=== PATIENT | male | born 1960 ===

== ENCOUNTER → 2016-11-14 | Outpatient (CLI) | payer MEDICARE, MEDICAID ==
--- NOTE | 2016-12-04 13:54 | SS ---
ADMIT: 11/14/2016 RM/LOC: [facility] MR#: [id number] [id number] BARRAGANERWIN Chatterjee [address] [place] [address] Sleep Study SEX: M AGE: 56 : 1960 STUDY DATE: 11/14/2016 CLINICAL HISTORY: This is a 56-year-old male, body mass of 28.7, 68 inches tall, 190 pounds with symptoms of excessive daytime somnolence, undergoing evaluation for obstructive sleep apnea. TECHNICAL DESCRIPTION: Split night polysomnogram performed on night of 11/14/2016, attended by a trained diagnostic radiologic technologist. DIAGNOSTIC POLYSOMNOGRAM FINDINGS: SLEEP: Total time in bed is 161.5 minutes, total sleep time 123 minutes, sleep efficiency 76.2%. BREATHING: Moderate to severe obstructive sleep apnea with apnea-hypopnea index 22.4, primary positional. OXYGEN SATURATION: Average oxygen saturation is 94%. Lowest oxygen saturation 90%. CARDIAC: Average heart rate is 67 beats per minute. BODY POSITION: During the diagnostic portion, the patient slept in the supine lateral position. CPAP TITRATION FINDINGS: TITRATION DESCRIPTION: The patient was titrated from 5 cm of CPAP to 11 cm of CPAP. A ResMed AirFit F20 mask was used as interface. BREATHING: Excellent resolution of obstructive sleep apnea was seen. CPAP 11 cm. The patient was seen in REM sleep in lateral position. Complete resolution of obstructive events. REM supine sleep was not seen at this ADMIT: 11/14/2016 RM/LOC: [facility] MR#: [id number] [address] BARRAGANERWIN ESCOBEDO [address] [place] [id number] Sleep Study SEX: M AGE: 56 : 1960 ending pressure. IMPRESSION/PLAN: Moderate to severe positional obstructive sleep apnea with apnea-hypopnea index of 22.4. Recommend using CPAP 11 cm mask as mentioned above. Recommend losing weight, avoiding sedatives and alcohol. Refrain from driving if excessively sleepy. Recommend avoiding sleeping in supine position. Clinical correlation needed. CPAP compliance followup is recommended. Brant Rodriguez MD/ thomas JOB #: [id number] CC: Adelso Weiss, Attending Physician Ruperto Hope MD, Family Physician Adelso Weiss, [facility] [address] [address]
== END | disposition home or self-care (01) ==
LOC: RESC 19:49
DX: G47.33 Obstructive sleep apnea (adult) (pediatric) (principal); R40.0 Somnolence